=== PATIENT | male | born 1965 | race Caucasian/White ===

== ENCOUNTER 2018-01-09 16:20 | Observation (INO) | payer MEDICARE, MEDICAID ==
[~2018-01-09] VITALS: Ht 177.8 cm; Wt 73.8 kg
[2018-01-09 16:43] LABS: BASOPHILS % (AUTO) 0.3 % (0-1); EOSINOPHILS # (AUTO) 0.2 X10'3 (0-0.9); EOSINOPHILS % (AUTO) 1.6 % (0-6); HEMATOCRIT 41.9 % (42.0-52.0); HEMOGLOBIN 14.2 g/dl (14.0-17.9); LYMPHOCYTES # (AUTO) 2.6 X10'3 (1.1-4.8); LYMPHOCYTES % (AUTO) 24.7 % (21-51); MEAN CORPUSCULAR HEMOGLOBIN 30.9 PG (27.0-31.0); MEAN CORPUSCULAR VOLUME 91.1 FL (78-98); MEAN PLATELET VOLUME 7.7 FL (7.4-10.4); MONOCYTES % (AUTO) 9.9 % (2-12); NEUTROPHILS # (AUTO) 6.6 X10'3 (1.8-7.7); NEUTROPHILS % (AUTO) 63.5 % (42-75); PLATELET COUNT 286 X10'3 (140-440); RED CELL DISTRIBUTION WIDTH 15.1 % (11.5-14.5); WHITE BLOOD COUNT 10.3 X10'3 (4.5-11.0)
[2018-01-09 16:54] LABS: PARTIAL THROMBOPLASTIN TIME 26 SECONDS (22-32); PROTHROMBIN TIME 10.3 SECONDS (9.0-12.0)
[2018-01-09 16:58] LABS: ALANINE AMINOTRANSFERASE 21 U/L (12-78); ALBUMIN/GLOBULIN RATIO 1.3 (1.1-1.5); ALKALINE PHOSPHATASE 79 IU/L (46-116); ANION GAP 8 (8-16); ASPARTATE AMINO TRANSFERASE 10 U/L (10-37); BILIRUBIN,TOTAL 0.2 MG/DL (0.1-1.0); BLOOD UREA NITROGEN 21 MG/DL (7-18); CHLORIDE 106 MMOL/L (99-107); CREATININE 1.05 MG/DL (0.60-1.10); GLUCOSE 108 MG/DL (70-104); POTASSIUM 4.6 MMOL/L (3.5-5.1); SODIUM 141 MMOL/L (135-145); TOTAL CARBON DIOXIDE 26.7 MMOL/L (24-32); TOTAL PROTEIN 7.1 G/DL (6.4-8.2); eGFR 74 ML/MIN
[2018-01-09 17:02] LABS: TROPONIN I < 0.04 NG/ML (0.0-0.05)
[2018-01-09 18:16] LABS: ACETAMINOPHEN 7.2 UG/ML (10-30)
[2018-01-09] MEDS ORDERED: mag hydrox/Alum hydrox/simeth 30ml oral suspension PO PRN (18:30)
[2018-01-09] MEDS ORDERED: potassium Cl 20 mEq SR tablet PO PRN ×2 (18:30)
[2018-01-09] MEDS ORDERED: magnesium 4gm in 100ml NS 100 ML IV PRN (18:30)
[2018-01-09] MEDS ORDERED: ondansetron/PF 4mg/2ml inj IV PRN (18:30)
[2018-01-09] MEDS ORDERED: magnesium Cl slow-release 64mg tablet PO PRN (18:30)
[2018-01-09] MEDS ORDERED: magnesium 1gm/100ml D5W IVPB 100 ML IV PRN (18:30)
[2018-01-09] MEDS ORDERED: potassium Cl 40MEQ/NS 500ml 500 ML IV PRN ×2 (18:30)
[2018-01-09] MEDS ORDERED: acetaminophen 325mg tablet PO PRN (18:30)
[2018-01-09] MEDS ORDERED: magnesium hydroxide 30ml (MOM) UD suspension PO PRN (18:30)
[2018-01-09] MEDS ORDERED: bisacodyl 10mg suppository rectal RC PRN (18:30)
[2018-01-09] MEDS ORDERED: insulin Lispro (HumaLOG) vial - multi-dose SQ SCH (18:35)
[2018-01-09] MEDS ORDERED: dextrose ORAL solution 15 GM/59 ML bottle PO PRN ×2 (18:35)
[2018-01-09] MEDS ORDERED: glucagon, human recombinant 1mg kit SUBCUT PRN (18:35)
[2018-01-09] MEDS ORDERED: dextrose 50%-water 50ml dispensing syringe IV PRN ×2 (18:35)
[2018-01-09] MEDS ORDERED: MESSAGE TO PHARMACY PO ONE (18:35)
[2018-01-09 19:08] LABS: CLARITY,URINE CLEAR (Clear); COLOR,URINE YELLOW (Yellow); GLUCOSE, URINE NEGATIVE (Neg); KETONES,URINE NEGATIVE (Neg); LEUKOCYTE ESTERASE ,URINE NEGATIVE (Neg); NITRITES, URINE NEGATIVE (Neg); OCCULT BLOOD,URINE NEGATIVE (Neg); PH,URINE 5.5 (4.8-8.0); PROTEIN,URINE NEGATIVE (Neg); UROBILINOGEN,URINE 0.2 E.U/dL (0.2-1.0)
[2018-01-09 19:14] LABS: UA COLLECTION TYPE VOIDED
[2018-01-09 19:21] LABS: URINE AMPHETAMINE SCREEN NEGATIVE (Neg); URINE BARBITUATE SCREEN NEGATIVE (Neg); URINE BENZODIAZEPINES SCREEN NEGATIVE (Neg); URINE CANNABINOID SCREEN NEGATIVE (Neg); URINE COCAINE SCREEN NEGATIVE (Neg); URINE METHADONE SCREEN NEGATIVE (Neg); URINE OPIATE SCREEN POSITIVE (Neg); URINE PHENCYCLIDINE SCREEN NEGATIVE (Neg)
[2018-01-09] MEDS: sodium chloride 0.45% 1,000 ML IV SCH (19:28)
[2018-01-09] MEDS: docusate sod 100mg capsule PO SCH (19:29)
[2018-01-09] MEDS: amox tr/potassium clavulanate 875/125mg TAB PO SCH (19:29)
[2018-01-09] MEDS: nicotine 21mg patch - 24 hr TD SCH (19:35)
[2018-01-09 20:45] VITALS: BP 152/77
[2018-01-09] MEDS ORDERED: HYDR-565 PO (21:30)
[2018-01-09] MEDS ORDERED: OMEP40CA37 PO (21:30)
[2018-01-09] MEDS ORDERED: TRAM50TA2 PO (21:30)
[2018-01-09] MEDS ORDERED: METF500T PO (21:30)
[2018-01-09] MEDS ORDERED: SIMV20TA5 PO (21:30)
[2018-01-09] MEDS ORDERED: ENAL20TA75 PO (21:30)
[2018-01-09] MEDS ORDERED: METO100T14 PO (21:30)
[2018-01-09 22:00] VITALS: BP 160/75
[2018-01-10 01:58] VITALS: BP 127/66
[2018-01-10 06:00] VITALS: BP 135/74
[2018-01-10 06:21] LABS: BASOPHILS % (AUTO) 0.3 % (0-1); EOSINOPHILS # (AUTO) 0.3 X10'3 (0-0.9); EOSINOPHILS % (AUTO) 2.5 % (0-6); HEMATOCRIT 39.6 % (42.0-52.0); HEMOGLOBIN 13.5 g/dl (14.0-17.9); LYMPHOCYTES # (AUTO) 2.2 X10'3 (1.1-4.8); LYMPHOCYTES % (AUTO) 21.7 % (21-51); MEAN CORPUSCULAR HEMOGLOBIN 30.5 PG (27.0-31.0); MEAN CORPUSCULAR VOLUME 89.8 FL (78-98); MEAN PLATELET VOLUME 7.8 FL (7.4-10.4); MONOCYTES % (AUTO) 9.4 % (2-12); NEUTROPHILS # (AUTO) 6.8 X10'3 (1.8-7.7); NEUTROPHILS % (AUTO) 66.1 % (42-75); PLATELET COUNT 247 X10'3 (140-440); RED BLOOD COUNT 4.42 X10'6 (4.70-6.10); RED CELL DISTRIBUTION WIDTH 14.9 % (11.5-14.5); WHITE BLOOD COUNT 10.3 X10'3 (4.5-11.0)
[2018-01-10 06:37] LABS: ALBUMIN 3.4 G/DL (3.4-5.0); ANION GAP 8 (8-16); BLOOD UREA NITROGEN 17 MG/DL (7-18); BUN/CREATININE RATIO 18.7 (5.4-32.0); CALCIUM 8.8 MG/DL (8.5-10.1); CHLORIDE 106 MMOL/L (99-107); CHOL/HDL RATIO 3.6 (0.00-4.99); CHOLESTEROL 126 MG/DL (0-200); CREATININE 0.91 MG/DL (0.60-1.10); GLUCOSE 102 MG/DL (70-104); HDL CHOLESTEROL 35 MG/DL (35-60); LDL CHOLESTEROL 73 MG/DL (50-100); MAGNESIUM 1.9 MG/DL (1.5-2.4); SODIUM 140 MMOL/L (135-145); TOTAL CARBON DIOXIDE 26.5 MMOL/L (24-32); TRIGLYCERIDES 84 MG/DL (20-135); eGFR 87 ML/MIN
[2018-01-10] MEDS ORDERED: aspirin 325mg tablet, delayed-release (Ecotrin) PO SCH (08:00)
[2018-01-10] MEDS ORDERED: atorvastatin 10mg tablet PO SCH ×2 (08:00→21:00)
[2018-01-10] MEDS ORDERED: K and/or MAG REPLACEMENT MC SCH (08:00)
[2018-01-10] MEDS ORDERED: enoxaparin 40mg/0.4ml syringe SUBCUT SCH (08:00)
[2018-01-10] MEDS: docusate sod 100mg capsule PO SCH (08:36)
[2018-01-10] MEDS: amox tr/potassium clavulanate 875/125mg TAB PO SCH ×2 (08:36→17:02)
[2018-01-10] MEDS: nicotine 21mg patch - 24 hr TD SCH (08:37)
[2018-01-10] MEDS: sodium chloride 0.45% 1,000 ML IV SCH (08:49)
[2018-01-10 10:00] VITALS: BP 169/77
[2018-01-10] MEDS ORDERED: traMADol 50MG tablet PO PRN (12:45)
[2018-01-10 14:00] VITALS: BP 171/81
[2018-01-10] MEDS ORDERED: HYDROcodone/acetaminophen 10/325mg tab PO SCH (14:00)
[2018-01-10] MEDS ORDERED: non-formulary drug (Enalapril Maleate* (Vasotec*) 1 TAB) PO SCH (17:20)
[2018-01-10] MEDS ORDERED: AMOX-580 PO (17:21)
[2018-01-10] MEDS ORDERED: ASPI81TA52 PO (17:21)
[2018-01-10] MEDS ORDERED: lactobacillus rhamnosus 10,000 MMU CELLS/CAPSULE PO SCH (20:00)
[2018-01-10] MEDS ORDERED: non-formulary drug (Simvastatin* (Zocor*) 1 TAB) PO SCH (21:00)
[2018-01-11] MEDS ORDERED: pantoprazole 40mg Tablet.DR PO SCH (07:30)
[2018-01-11] MEDS ORDERED: non-formulary drug (Omeprazole (Prilosec) 1 CAP) PO SCH (08:00)
[2018-01-11] MEDS ORDERED: lisinopril 20mg tablet PO SCH (08:00)
== END 2018-01-10 18:00 | disposition home or self-care (01) ==
LOC: ER 16:21 → ED HOLD 18:26 → EDBEDREQ 19:42 → CMPBEDREQ 20:39 → ORTHO 4S 20:40
PROVIDERS: ADMIT Internal Medicine; ATTEND Internal Medicine
DX: J32.9 Chronic sinusitis, unspecified (principal); E11.9 Type 2 diabetes mellitus without complications; F17.210 Nicotine dependence, cigarettes, uncomplicated; M54.2 Cervicalgia; M54.5 Low back pain; G89.29 Other chronic pain; I10 Essential (primary) hypertension; I63.9 Cerebral infarction, unspecified; R42 Dizziness and giddiness; R51 Headache
CPT/HCPCS: 36415; 70450; 70544; 70551; 71045; 72141; 80048; 80053; 80061; 80305; 80329; 81003; 82948; 83036; 83735; 84484; 85025; 85610; 85651; 85730; 87070; 93005; 93306; 93880; 96360; 96361; 96372; 97116; 97161; 97530; 99285; G0378; J1650; A6446

== ENCOUNTER 2022-11-17 12:19 | Emergency (ER) | payer MEDICARE, MEDICAID ==
[~2022-11-17] VITALS: Ht 177.8 cm; Wt 72.0 kg
[~2022-11-17 12:19] MED LIST: AMOX-580 PO; ENAL20TA75 PO; HYDR-4353 PO; METF500T PO; METO100T14 PO; OMEP40CA21 PO; SIMV-42 PO; TRAM50TA2 PO
[2022-11-17 13:13] LABS: BASOPHILS % (AUTO) 0.6 % (0-1); EOSINOPHILS # (AUTO) 0.1 X10'3 (0-0.9); EOSINOPHILS % (AUTO) 1.6 % (0-6); HEMATOCRIT 49.3 % (42.0-52.0); HEMOGLOBIN 16.6 g/dl (14.0-17.9); LYMPHOCYTES # (AUTO) 1.3 X10'3 (1.1-4.8); LYMPHOCYTES % (AUTO) 15.3 % (21-51); MEAN CORPUSCULAR HEMOGLOBIN 31.2 PG (27.0-31.0); MEAN CORPUSCULAR HGB CONC 33.7 g/dL (33.0-36.5); MEAN CORPUSCULAR VOLUME 92.6 FL (78-98); MEAN PLATELET VOLUME 7.8 FL (7.4-10.4); MONOCYTES # (AUTO) 0.8 X10'3 (0-0.9); NEUTROPHILS # (AUTO) 6.4 X10'3 (1.8-7.7); NEUTROPHILS % (AUTO) 73.5 % (42-75); PLATELET COUNT 268 X10'3 (140-440); RED BLOOD COUNT 5.32 X10'6 (4.70-6.10); WHITE BLOOD COUNT 8.7 X10'3 (4.5-11.0)
[2022-11-17 13:27] LABS: ALANINE AMINOTRANSFERASE 17 U/L (12-78); ALBUMIN 4.2 G/DL (3.4-5.0); ALBUMIN/GLOBULIN RATIO 1.4 (1.1-1.5); ALKALINE PHOSPHATASE 96 IU/L (46-116); ANION GAP 12 (8-16); ASPARTATE AMINO TRANSFERASE 11 U/L (10-37); BILIRUBIN,TOTAL 0.3 MG/DL (0.1-1.0); BLOOD UREA NITROGEN 12 MG/DL (7-18); BUN/CREATININE RATIO 11.7 (10.0-20.0); CALCIUM 9.2 MG/DL (8.5-10.1); CHLORIDE 102 MMOL/L (99-107); CREATININE 1.03 MG/DL (0.60-1.10); GLUCOSE 131 MG/DL (70-104); LIPASE < 50 U/L (73-393); POTASSIUM 4.2 MMOL/L (3.5-5.1); SODIUM 137 MMOL/L (135-145); TOTAL PROTEIN 7.2 G/DL (6.4-8.2); eGFR 74 ML/MIN
[2022-11-17 13:36] LABS: CLARITY,URINE SLIGHTLY CLOUDY (Clear); COLOR,URINE YELLOW (Yellow); GLUCOSE, URINE NEGATIVE (Neg); KETONES,URINE NEGATIVE (Neg); LEUKOCYTE ESTERASE ,URINE SMALL (Neg); NITRITES, URINE NEGATIVE (Neg); OCCULT BLOOD,URINE NEGATIVE (Neg); PH,URINE 5.5 (4.8-8.0); PROTEIN,URINE NEGATIVE (Neg); UROBILINOGEN,URINE 0.2 E.U/dL (0.2-1.0)
[2022-11-17 13:38] LABS: UA COLLECTION TYPE CLN CATCH MIDSTREAM
[2022-11-17 13:43] LABS: MUCUS STRANDS FEW /LPF (Neg); SQUAMOUS EPITHELIAL CELL,UR FEW /LPF (FEW); WBC,URINE 30-50 /HPF (0-4)
[2022-11-17 13:45] LABS: BACTERIA,URINE FEW /HPF (Neg); RBC,URINE NONE SEEN /HPF (0-2)
[2022-11-17 14:03] VITALS: BP 144/83
[2022-11-17] MEDS ORDERED: cephalexin 500mg capsule PO ONE (14:35)
[2022-11-17] MEDS ORDERED: CEPH500C2 PO (14:36)
== END 2022-11-17 14:56 | disposition home or self-care (01) ==
LOC: ER 12:20
DX: N39.0 Urinary tract infection, site not specified (principal); I10 Essential (primary) hypertension; E11.9 Type 2 diabetes mellitus without complications
CPT/HCPCS: 36415; 80053; 81001; 83690; 85025; 87088; 99283